=== PATIENT | male | born 1985 | race Caucasian/White ===

== ENCOUNTER 2018-04-06 14:48 | Emergency (ER) | payer BC, OTHER ==
[~2018-04-06] VITALS: Ht 182.9 cm; Wt 86.3 kg
[2018-04-06 15:05] VITALS: TEMP 36.3; Ht 182.9 cm; Wt 86.3 kg
[2018-04-06] MEDS ORDERED: KETOROLAC TROMETHAMINE 30 MG/ML VIAL IV STA (15:15)
[2018-04-06] MEDS ORDERED: ONDANSETRON INJ 2 MG/ML 2 ML VIAL IV STA (15:15)
[2018-04-06] MEDS ORDERED: MoRPHine SULFATE 4 MG/ML 1 ML CARP\\VIAL IV STA (15:15)
[2018-04-06 15:37] LABS: BASO % 0.1 %; BASO ABS # 0.01 K/uL (0-0.2); EOS % 0.1 %; EOS ABS # 0.01 K/uL (0-0.5); HEMATOCRIT 43.8 % (42-52); HEMOGLOBIN 15.3 g/dL (14.0-18.0); IG# 0.01 K/uL (0.00-0.02); LYMPH % 11.6 %; MEAN CELL VOLUME 93.8 fL (80-100); MEAN CORPUSCULAR HEMOGLOBIN 32.8 pg (25-34); MEAN CORPUSCULAR HGB CONC 34.9 g/dl (32-36); MEAN PLATELET VOLUME 9.7 fL (7.4-10.4); MONO % 4.7 %; MONO ABS # 0.49 K/uL (0.11-0.59); NEUT % 83.4 %; NEUT ABS # 8.63 K/uL (1.4-6.5); PLATELET COUNT 231 K/uL (130-400); RED CELL DISTRIBUTION WIDTH SD 40.4 fL (36.4-46.3); WHITE BLOOD COUNT 10.35 K/uL (4.8-10.8)
--- NOTE | 2018-04-06 15:44 | DIAGNOSTIC IMAGING REPORT ---
CT SCAN OF THE ABDOMEN AND PELVIS WITHOUT CONTRAST CLINICAL HISTORY: Left flank pain, nausea, vomiting COMPARISON STUDY: No previous studies for comparison. TECHNIQUE: CT scan of the abdomen and pelvis was performed from the lung bases to the proximal femurs. Images are reviewed in the axial, sagittal, and coronal planes. IV contrast was not administered for this examination. A dose lowering technique was utilized adhering to the principles of ALARA. CT DOSE: 911.78 mGy.cm FINDINGS: Lower chest: There are minor dependent atelectatic changes. Liver: The unenhanced liver is normal in size, contour, and attenuation. There is no intrahepatic biliary ductal dilatation. Gallbladder: Unremarkable. Spleen: Normal in size and attenuation. Pancreas: Unremarkable. Adrenal glands: Unremarkable. Kidneys: There are punctate renal calculi. There is left-sided hydronephrosis and hydroureter. There is left-sided perinephric stranding. There is an obstructing 5 x 6 x 9 mm proximal left ureteral calculus at the inferior L3 level. 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 Bowel: There are no transition zones to indicate bowel obstruction. There is no acute appendicitis. There is no acute diverticulitis. Peritoneum: There is no intraperitoneal free air or abdominal ascites. Vasculature: The abdominal aorta is normal in course and caliber. Adenopathy: None. Pelvic viscera: The bladder, and pelvic viscera are unremarkable. Skeletal structures: No destructive osseous lesions are seen. IMPRESSION: 1. Obstructing 5 x 6 x 9 mm proximal left ureteral calculus at the inferior L3 level. 2. Punctate intrarenal calculi 3. No evidence of bowel obstruction. No evidence of free air. Electronically signed by: Raman Olson M.D. 04/06/2018 3:43 PM Dictated Date/Time: 04/06/2018 3:38 PM
[2018-04-06 15:58] LABS: ALBUMIN 4.1 gm/dl (3.4-5.0); CALCIUM 8.8 mg/dl (8.5-10.1); CREATININE 1.32 mg/dl (0.60-1.40); TOTAL PROTEIN 7.7 gm/dl (6.4-8.2)
[2018-04-06] MEDS ORDERED: SODIUM CHLORIDE 0.9% 1000ML 1,000 ML IV ONE (15:59)
[2018-04-06] MEDS ORDERED: TAMSULOSIN HCL 0.4 MG CAP PO ONE (16:15)
[2018-04-06] MEDS ORDERED: ONDA4TAB10 SL (17:30)
[2018-04-06] MEDS ORDERED: IBUP600T44 PO (17:30)
[2018-04-06] MEDS ORDERED: OXYC-90 PO (17:30)
[2018-04-06] MEDS ORDERED: TAMS0.4C38 PO (17:30)
--- NOTE | 2018-04-06 17:43 | EMERGENCY ROOM VISIT NOTE ---
History Report prepared by [place]: Perlita Ding Under the Supervision of: Dr. Rhett Hawthorne M.D. First contact with patient: 15:08 Chief Complaint: BACK PAIN Stated Complaint: SEVERE BACK PAIN History of Present Illness The patient is a 32 year old male who presents to the Emergency Room with complaints of sudden severe back pain beginning around 0930 this morning. He has some associated nausea and vomiting but denies any fevers, leg pain. The patient has a family history of kidney stones. Source of History: patient Onset: 929 this morning Position: back Symptom Intensity: severe Timing: other (sudden) Associated Symptoms: + nausea, + vomiting, No fevers Note: Positive family history of kidney stones. Negative leg pain Review of Systems See HPI for pertinent positives and negatives. A total of ten systems were reviewed and were otherwise negative. Past Medical & Surgical Medical Problems: (1) Heart disease Family History FH: heart disease Kidney stones Social History Smoking Status: Never Smoker Smokeless Tobacco Use: Yes Alcohol Use: occasionally Housing Status: lives with family Occupation Status: employed Current/Historical Medications Scheduled Ondasetron Odt (Zofran Odt), 4 MG SL Q6H Tamsulosin Hcl (Flomax), 0.4 MG PO DAILY Scheduled PRN Ibuprofen (Motrin), 600 MG PO TID PRN for Pain Oxycodone Ir (Roxicodone Ir), 1 TAB PO Q6 PRN for Pain Allergies Coded Allergies: No Known Allergies (Unverified , 04/28/11) Physical Exam Vital Signs Date Time Temp Pulse Resp B/P (MAP) Pulse Ox O2 Delivery O2 Flow Rate FiO2 04/06/18 16:31 62 130/85 98 04/06/18 15:05 36.3 60 18 134/80 98 Room Air Physical Exam GENERAL: Awake, alert, uncomfortable-appearing, in no distress HENT: Normocephalic, atraumatic. Oropharynx unremarkable. EYES: Normal conjunctiva. Sclera non-icteric. NECK: Supple. No nuchal rigidity. RESPIRATORY: Clear to auscultation. No wheezes. Normal respiratory effort. CARDIAC: Normal rate. Normal rhythm. Extremities warm and well perfused. GI: Soft, non-distended. No tenderness to palpation. No rebound or guarding. No masses. RECTAL: Deferred. MUSCULOSKELETAL: Atraumatic. Chest examination reveals no tenderness. There is no CVA tenderness to palpation. Mild left flank tenderness LOWER EXTREMITIES: Calves are equal size bilaterally and non-tender. No edema NEURO: Normal sensorium. No sensory or motor deficits noted. No facial droop. SKIN: Warm and dry. No rash or jaundice noted. Medical Decision & Procedures ER Provider Diagnostic Interpretation: Radiology results as stated below per my review and radiologist interpretation: CT SCAN OF THE ABDOMEN AND PELVIS WITHOUT CONTRAST CLINICAL HISTORY: Left flank pain, nausea, vomiting COMPARISON STUDY: No previous studies for comparison. TECHNIQUE: CT scan of the abdomen and pelvis was performed from the lung bases to the proximal femurs. Images are reviewed in the axial, sagittal, and coronal planes. IV contrast was not administered for this examination. A dose lowering technique was utilized adhering to the principles of ALARA. CT DOSE: 911.78 mGy.cm FINDINGS: Lower chest: There are minor dependent atelectatic changes. Liver: The unenhanced liver is normal in size, contour, and attenuation. There is no intrahepatic biliary ductal dilatation. Gallbladder: Unremarkable. Spleen: Normal in size and attenuation. Pancreas: Unremarkable. Adrenal glands: Unremarkable. Kidneys: There are punctate renal calculi. There is left-sided hydronephrosis and hydroureter. There is left-sided perinephric stranding. There is an obstructing 5 x 6 x 9 mm proximal left ureteral calculus at the inferior L3 level. 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 Bowel: There are no transition zones to indicate bowel obstruction. There is no acute appendicitis. There is no acute diverticulitis. Peritoneum: There is no intraperitoneal free air or abdominal ascites. Vasculature: The abdominal aorta is normal in course and caliber. Adenopathy: None. Pelvic viscera: The bladder, and pelvic viscera are unremarkable. Skeletal structures: No destructive osseous lesions are seen. IMPRESSION: 1. Obstructing 5 x 6 x 9 mm proximal left ureteral calculus at the inferior L3 level. 2. Punctate intrarenal calculi 3. No evidence of bowel obstruction. No evidence of free air. Electronically signed by: Raman Olson M.D. 04/06/2018 3:43 PM Laboratory Results 04/06/18 15:24 Red Blood Count 4.67, Mean Corpuscular Volume 93.8, Mean Corpuscular Hemoglobin 32.8, Mean Corpuscular Hemoglobin Concent 34.9, Mean Platelet Volume 9.7, Neutrophils (%) (Auto) 83.4, Lymphocytes (%) (Auto) 11.6, Monocytes (%) (Auto) 4.7, Eosinophils (%) (Auto) 0.1, Basophils (%) (Auto) 0.1, Neutrophils # (Auto) 8.63, Lymphocytes # (Auto) 1.20, Monocytes # (Auto) 0.49, Eosinophils # (Auto) 0.01, Basophils # (Auto) 0.01 04/06/18 15:24 Test 04/06/18 15:24 04/06/18 16:51 White Blood Count 10.35 K/uL (4.8-10.8) Red Blood Count 4.67 M/uL (4.7-6.1) Hemoglobin 15.3 g/dL (14.0-18.0) Hematocrit 43.8 % (42-52) Mean Corpuscular Volume 93.8 fL (80-100) Mean Corpuscular Hemoglobin 32.8 pg (25-34) Mean Corpuscular Hemoglobin Concent 34.9 g/dl (32-36) Platelet Count 231 K/uL (130-400) Mean Platelet Volume 9.7 fL (7.4-10.4) Neutrophils (%) (Auto) 83.4 % Lymphocytes (%) (Auto) 11.6 % Monocytes (%) (Auto) 4.7 % Eosinophils (%) (Auto) 0.1 % Basophils (%) (Auto) 0.1 % Neutrophils # (Auto) 8.63 K/uL (1.4-6.5) Lymphocytes # (Auto) 1.20 K/uL (1.2-3.4) Monocytes # (Auto) 0.49 K/uL (0.11-0.59) Eosinophils # (Auto) 0.01 K/uL (0-0.5) Basophils # (Auto) 0.01 K/uL (0-0.2) RDW Standard Deviation 40.4 fL (36.4-46.3) RDW Coefficient of Variation 12.0 % (11.5-14.5) Immature Granulocyte % (Auto) 0.1 % Immature Granulocyte # (Auto) 0.01 K/uL (0.00-0.02) Anion Gap 7.0 mmol/L (3-11) Est Creatinine Clear Calc Drug Dose 88.2 ml/min Estimated GFR () 82.1 Estimated GFR (Non- 70.9 BUN/Creatinine Ratio 11.6 (10-20) Calcium Level 8.8 mg/dl (8.5-10.1) Total Bilirubin 0.4 mg/dl (0.2-1) Direct Bilirubin 0.1 mg/dl (0-0.2) Aspartate Amino Transf (AST/SGOT) 25 U/L (15-37) Alanine Aminotransferase (ALT/SGPT) 38 U/L (12-78) Alkaline Phosphatase 76 U/L (45-117) Total Protein 7.7 gm/dl (6.4-8.2) Albumin 4.1 gm/dl (3.4-5.0) Lipase 121 U/L (73-393) Urine Color YELLOW Urine Appearance CLEAR (CLEAR) Urine pH 5.5 (4.5-7.5) Urine Specific [place] 1.025 (1.000-1.030) Urine Protein 1+ (NEG) Urine Glucose (UA) NEG (NEG) Urine Ketones NEG (NEG) Urine Occult Blood 2+ (NEG) Urine Nitrite NEG (NEG) Urine Bilirubin NEG (NEG) Urine Urobilinogen NEG (NEG) Urine Leukocyte Esterase NEG (NEG) Urine WBC (Auto) 10-30 /hpf (0-5) Urine RBC (Auto) 10-30 /hpf (0-4) Urine Hyaline Casts (Auto) 1-5 /lpf (0-5) Urine Epithelial Cells (Auto) 10-20 /lpf (0-5) Urine Bacteria (Auto) NEG (NEG) Urine Yeast (Auto) (NONE PRSENT) Laboratory results reviewed by me Medications Administered Medications (Trade) Dose Ordered Sig/Jonathan Route Start Time Stop Time Status Last Admin Dose Admin Ondansetron HCl (Zofran Inj) 4 mg NOW STAT IV 04/06/18 15:15 04/06/18 15:17 DC 04/06/18 15:20 4 MG Ketorolac Tromethamine (Toradol Inj) 15 mg NOW STAT IV 04/06/18 15:15 04/06/18 15:17 DC 04/06/18 15:21 15 MG Morphine Sulfate (MoRPHine SULFATE INJ) 4 mg NOW STAT IV 04/06/18 15:15 04/06/18 15:17 DC 8/25/18 15:22 4 MG Sodium Chloride 1,000 ml @ 999 mls/hr Q1H1M ONCE IV 04/06/18 15:59 04/06/18 16:59 DC 04/06/18 15:59 999 MLS/HR Tamsulosin HCl (Flomax Cap) 0.4 mg NOW ONCE PO 04/06/18 16:15 04/06/18 16:16 DC 04/06/18 16:30 0.4 MG ED Course 1512: The patient was evaluated in room B6. A complete history and physical exam was performed. 1515: Ordered Morphine Sulfate 4 mg IV, Toradol Inj 15 mg IV, Zofran Inj 4 mg IV 1559: Ordered Sodium Chloride 1000 ml @ 999 mls/hr IV 1607: Discussed the patient's case with Dr. Flores, Urology. The patient can go home with outpatient follow up. 1615: Ordered Flomax Cap 0.4 mg PO 1724: I reevaluated the patient. Discussed results and discharge instructions: He verbalized understanding and agreement. The patient is ready for discharge. Medical Decision Triage Nursing notes reviewed. Differential diagnosis: Etiologies such as renal colic, appendicitis, diverticulitis, mesenteric ischemia, aortic pathology, infections, inflammatory bowel disease, PUD, biliary pathology, UTI, as well as others were entertained. Patient presents onset early this morning of acute left flank pain without left testicular pain or trauma. Denies significant abdominal pain. Some mild tenderness of left flank on palpation. Family history but no personal history of kidney stones. Given the CT scan to look for nephrolithiasis was completed. Doubt appendicitis or perforation. No signs of pancreatitis or hepatitis. Urinalysis sent. Basic labs completed. Given symptomatic treatment Toradol, Zofran, and morphine. CT scan with evidence of nephrolithiasis. Will start on Flomax. Prescription for Motrin and breakthrough oxycodone along with Zofran given. Recommend outpatient follow-up with urology this coming week and urine strainer given. Anticipatory guidance. Discussed return criteria. Stable for discharge. PDMP reviewed. [place] Drug Monitoring Program Search Results: patient reviewed within database, no issues identified Medication Reconcilliation Current Medication List: was personally reviewed by [facility] Blood Pressure Screening Patient's blood pressure: Normal blood pressure Blood pressure disposition: Did not require urgent referral Consults Time Called: 1600 Consulting Physician: Dr. Flores, Urology Returned Call: [phone] Discussed the patient's case with Dr. Flores, Urology. The patient can go home with outpatient follow up. Impression Primary Impression: Kidney stone on left side Scribe Attestation The scribe's documentation has been prepared under my direction and personally reviewed by me in its entirety. I confirm that the note above accurately reflects all work, treatment, procedures, and medical decision making performed by me. Departure Information Dispostion Home / Self-Care Prescriptions Tamsulosin Hcl (FLOMAX) 0.4 Mg Cap 0.4 MG PO DAILY, #14 CAP Prov: Rhett Hawthorne M.D. 04/06/18 Ibuprofen (Motrin) 600 Mg Tab 600 MG PO TID Y for Pain, #24 TAB With Food Prov: Rhett Hawthorne M.D. 04/06/18 Oxycodone Ir (Roxicodone Ir) 5 Mg Tab 1 TAB PO Q6 Y for Pain, #12 TAB Prov: Rhett Hawthorne M.D. 04/06/18 Ondasetron Odt (ZOFRAN ODT) 4 Mg Tab 4 MG SL Q6H for Nausea, #18 TAB Prov: Rhett Hawthorne M.D. 04/06/18 Referrals Rj Reyes M.D. (PCP) Forms HOME CARE DOCUMENTATION FORM, IMPORTANT VISIT INFORMATION Patient Instructions My [facility] Additional Instructions Please use the Motrin regularly along with the Flomax. If you have nausea utilize Zofran. If you need to use the oxycodone for breakthrough pain do not operate heavy machinery or drive while on it. If you begin to experience severe pain, fevers, urinary symptoms, or other concerns please return here for reevaluation sooner. Otherwise continue to strain urine and follow-up with urology in the next 3-5 days.
[2018-04-06 17:56] VITALS: BP 121/64; PULSE 47; O2SAT 98
== END 2018-04-06 17:58 | disposition home or self-care (01) ==
LOC: C.EDB 14:49
DX: N20.0 Calculus of kidney (principal); F17.220 Nicotine dependence, chewing tobacco, uncomplicated